=== PATIENT | male | born 1950 | race Caucasian/White ===

== ENCOUNTER → 2017-11-28 12:50 | Outpatient (CLI) | payer MEDICARE, OTHER, SELFPAY ==
--- NOTE | 2017-11-28 | DI.RAD.S_ITS ---
PROCEDURE: XR CERVICAL SPINE 4V OR 5V INDICATIONS: CERVICALGIA TECHNIQUE: 5 views of the cervical spine acquired. COMPARISON: None. FINDINGS: Bones: No fractures or dislocations to the C7 level. There is surgical fusion at C5-C7. There is bilateral facet arthropathy, moderate at C3-C4 on the right and at C4-C5 on the left. There is straightening of cervical curvature. Oblique images demonstrate moderate foraminal stenoses at C3-C4 on the right, and mild foraminal stenosis at C4-C5 on the left. Soft tissues: No prevertebral soft tissue swelling. IMPRESSION: 1. Degenerative and postsurgical changes in cervical spine. 2. Moderate right C3-C4 foraminal stenosis and mild left C4-C5 foramina stenosis. Dictated by: Axel Vieyra M.D. on 11/28/2017 at 17:30 Approved by: Axel Vieyra M.D. on 11/28/2017 at 17:33
== END ==
PROVIDERS: Visit Provider Registered Nurse
DX: M48.02 Spinal stenosis, cervical region (principal); M54.2 Cervicalgia
CPT/HCPCS: 72050